=== PATIENT | female | born 1940 | race Caucasian/White ===

== ENCOUNTER → 2016-11-05 | Outpatient (CLI) | payer MEDICARE, OTHER ==
[~2016-11-05] MED LIST: ELIQUIS 5MG PO; LIPITOR 10MG10 MG; NORVASC 5MG5 MG/TAB PO; SYNTHROID0.05 MG/TA PO; TOPROL XL 25MG25 MG PO
== END ==
LOC: COL.LAB 09:50
PROVIDERS: Orthopaedic Surgery
DX: Z01.812 Encounter for preprocedural laboratory examination (principal)

== ENCOUNTER 2016-12-04 10:58 | Inpatient (IN) | payer MEDICARE, OTHER ==
[~2016-12-04] VITALS: Ht 147.3 cm; Wt 91.0 kg
[2016-12-24] MEDS ORDERED: SYNTHROID0.05 MG/TA PO (11:33)
[2016-12-24] MEDS ORDERED: ELIQUIS 5MG PO (11:34)
[2016-12-24] MEDS ORDERED: TOPROL XL 25MG25 MG PO (11:35)
[2016-12-24] MEDS ORDERED: NORVASC 5MG5 MG/TAB PO (11:36)
[2016-12-24 11:37] VITALS: BP 130/86; PULSE 66; TEMP 97.6
[2016-12-24] MEDS ORDERED: LIPITOR 10MG10 MG PO (11:37)
--- NOTE | 2016-12-24 13:09 | NUR ---
PT TO SURGERY PER BED WITH MUMTAZ RN AT THIS TIME. CONSENT SIGNED ON CHART. VSS. PT VOIDED PRIOR TO GOING TO SURGERY.
[2016-12-24 17:18] VITALS: TEMP 99.3
--- NOTE | 2016-12-24 18:35 | NUR ---
PT TO ROOM 328 WITH REPORT FROM [facility], PT TURNED TO SIDE WRINKLES SMOOTHED, PEDAL PULSE PALPATED READILY ON NON OPERATIVE SIDE, OPERATIVE SIDE UNABLE TO PALPATE PULSES. DOPPLER UNSUCCESSFUL IN LOCATING PULSES, OPERATIVE TOES COOL TO TOUCH, DR. BHATT NOTIFIED AND CAME TO FLOOR. DR BHATT UNSUCCESSFUL IN LOCATING PULSES WITH DOPPLER. WAITING FOR FURTHER ORDERS. SOHAN DURÁN FOR DR. STEWART NOTIFIED.
[2016-12-24 18:41] VITALS: BP 132/83; PULSE 48
[2016-12-24 19:33] LABS: HEMATOCRIT 38.6 % (37.0-47.0); HEMOGLOBIN 12.3 g/dl (12.5-16.0); MEAN CELL VOLUME 97 fl (80.0-100.0); MEAN CORPUSCULAR HEMOGLOBIN 31 pg (27.0-31.0); MEAN CORPUSCULAR HGB CONC 32 g/dl (33.0-37.0); MEAN PLATELET VOLUME 9.1 fl (7.4-10.4); PLATELET COUNT 262 K/mm3 (130-400); RED BLOOD COUNT 3.98 M/mm3 (4.10-5.30); REDCELL DISTRIBUTION WIDTH-CV 15.1 % (11.5-14.5)
[2016-12-24 19:43] LABS: INR 1.5 (0.8-3.0); PROTHROMBIN TIME 16.6 SECONDS (9.7-12.8)
--- NOTE | 2016-12-24 19:57 | NUR ---
PT TRANSFERED BY [facility]IC[facility]TER TO [facility] WITH REPORT TO [facility] @1944. REPORT CALLED TO WALLACE GAFFNEY @ [facility] ICU @ 1954.
[2017-01-27] MEDS ORDERED: PLAVIX 75MG TAB75 MG PO (15:36)
[2017-01-27] MEDS ORDERED: COLACE 100100 MG/CAP PO (15:40)
[2017-01-27] MEDS ORDERED: ENSURE 237 ML237 ML PO (15:44)
[2017-01-27] MEDS ORDERED: FERROUS SU325 MG/TAB PO (15:45)
[2017-01-27] MEDS ORDERED: HCTZ 25MG TAB25 MG PO (15:47)
[2017-01-27] MEDS ORDERED: TIROSINT50 MC1 PO (15:49)
[2017-01-27] MEDS ORDERED: TOPROL XL 25MG25 MG PO (15:51)
[2017-01-27] MEDS ORDERED: MIRALAX PA17 GM/Dose PO (15:52)
[2017-01-27] MEDS ORDERED: BENICAR40 MG PO (15:53)
[2017-01-27] MEDS ORDERED: EFFEXOR XR75 MG/CAP PO (15:53)
[2017-01-27] MEDS ORDERED: CEFEPIME2 GM/100 M IV (15:57)
[2017-01-27] MEDS ORDERED: CIPRO 500MG TA500 MG PO (16:01)
[2017-02-26] MEDS ORDERED: CEFEPIME1 GM/50 ML IV (18:09)
[2017-02-26] MEDS ORDERED: HCTZ 25MG TAB25 MG PO (18:12)
[2017-02-26] MEDS ORDERED: NORVASC 5MG5 MG/TAB PO (18:15)
[2017-02-26] MEDS ORDERED: BENICAR40 MG PO (18:16)
[2017-02-26] MEDS ORDERED: VANCOMYCIN HYD750 MG IV (18:17)
[2017-02-26] MEDS ORDERED: CENA K40 MEQ/15 PO (18:17)
[2017-02-26] MEDS ORDERED: TYLENOL SU650 MG/SUP RC (18:20)
[2017-02-26] MEDS ORDERED: DULCOLAX S10 MG/SUPP RC (18:20)
[2017-02-26] MEDS ORDERED: IMODIUM 2MG CAPS2 MG PO (18:21)
[2017-02-26] MEDS ORDERED: ATIVAN 0.50.5 MG/TAB PO (18:22)
[2017-02-26] MEDS ORDERED: NORCO 325 MG-51 TAB PO (18:23)
[2017-02-26] MEDS ORDERED: TYLENOL 325MG325 MG PO (18:23)
[2017-03-01] MEDS ORDERED: TOPROL XL 50MG50 MG PO (13:03)
[2017-03-01] MEDS ORDERED: NORVASC 10MG10 MG PO (13:03)
[2017-03-01] MEDS ORDERED: COZAAR100 MG PO (13:03)
[2017-03-01] MEDS ORDERED: APRESOLINE 10MG10 MG PO (13:05)
== END 2016-12-24 20:02 | disposition short-term general hospital (02) | DRG 467 ==
LOC: SURG 12-24 07:30 → JCC 12-24 10:52 → SURG 12-24 13:30 → JCC 12-24 20:02
PROVIDERS: Surgery; ADMIT Orthopaedic Surgery
PROC: 0SPD0JZ Removal of Synthetic Substitute from Left Knee Joint, Open Approach (ICD-10-PCS; 2016-12-24)
PROC: 04Q Lower Arteries, Repair (ICD-10-PCS; 2016-12-24)
PROC: 0SRD0J9 Replacement of Left Knee Joint with Synthetic Substitute, Cemented, Open Approach (ICD-10-PCS; principal; 2016-12-24 13:30)
DX: T84.063A Wear of articular bearing surface of internal prosthetic left knee joint, initial encounter (principal); I97.52 Accidental puncture and laceration of a circulatory system organ or structure during other procedure; M17.12 Unilateral primary osteoarthritis, left knee; I10 Essential (primary) hypertension; G47.33 Obstructive sleep apnea (adult) (pediatric); I48.0 Paroxysmal atrial fibrillation
CPT/HCPCS: C1713; C1776; J0690; J1644; J2250; J2274; J2370; J2704; J3370; J7120

== ENCOUNTER → 2016-12-17 | Outpatient (CLI) | payer MEDICARE, OTHER | LOC: COL.LAB 14:20 | DX: Z01.812 Encounter for preprocedural laboratory examination (principal); M25.862 Other specified joint disorders, left knee ==

== ENCOUNTER → 2017-01-02 | Outpatient (REF) ==
[2017-01-02 12:27] LABS: MEAN CELL VOLUME 96 fl (80.0-100.0); MEAN CORPUSCULAR HGB CONC 32 g/dl (33.0-37.0); MEAN PLATELET VOLUME 10.2 fl (7.4-10.4); PLATELET COUNT 220 K/mm3 (130-400); RED BLOOD COUNT 2.63 M/mm3 (4.10-5.30); REDCELL DISTRIBUTION WIDTH-CV 18.3 % (11.5-14.5)
[2017-01-02 12:33] LABS: HEMATOCRIT 25.3 % (37.0-47.0); HEMOGLOBIN 8.2 g/dl (12.5-16.0); MEAN CORPUSCULAR HEMOGLOBIN 31 pg (27.0-31.0); WHITE BLOOD COUNT 21.4 K/mm3 (4.8-10.8)
[2017-01-02 12:42] LABS: CALCIUM 8.7 mg/dL (8.4-10.2); CREATININE, serum 0.94 mg/dL (0.52-1.25); POTASSIUM 3.6 mmol/L (3.4-5.0)
[2017-01-02 13:04] LABS: ADD PATHOLOGY DIFF REVIEW YES; ANISOCYTOSIS 1+; BAND 8 % (0-10); METAMYELOCYTE 5 % (0-0); MYELOCYTE 2 % (0-0); NEUTROPHILS 76 % (42.0-75.2); POLYCHROMASIA 1+; TOTAL CELLS COUNTED 100
[2017-01-05 08:46] LABS: PATHOLOGY DIFF REVIEW OK
== END ==
LOC: ZCOL.LAB 12:23
PROVIDERS: Internal Medicine
DX: Z01.89 Encounter for other specified special examinations (principal)

== ENCOUNTER → 2017-02-04 | Outpatient (REF) ==
[~2017-02-04] MED LIST changes: +BENICAR40 MG PO; +CEFEPIME2 GM/100 M IV; +CIPRO 500MG TA500 MG PO; +COLACE 100100 MG/CAP PO; +EFFEXOR XR75 MG/CAP PO; +ENSURE 237 ML237 ML PO; +FERROUS SU325 MG/TAB PO; +HCTZ 25MG TAB25 MG PO; +MIRALAX PA17 GM/Dose PO; +PLAVIX 75MG TAB75 MG PO; +TIROSINT50 MC1 PO
[2017-02-04 09:42] LABS: BASO # 0.1 (0.0-0.2); BASO % 0.8 % (0.0-2.0); EOS # 0.3 (0.0-0.7); EOS % 4.3 % (0-4.0); GRAN # 4.9 (1.4-6.5); LYMPH % 13.6 % (20.0-51.0); MEAN CELL VOLUME 105 fl (80.0-100.0); MEAN CORPUSCULAR HGB CONC 31 g/dl (33.0-37.0); MEAN PLATELET VOLUME 9.1 fl (7.4-10.4); MONO # 0.9 (0.1-0.6); MONO % 12.9 % (1.7-9.3); PLATELET COUNT 286 K/mm3 (130-400); RED BLOOD COUNT 2.62 M/mm3 (4.10-5.30); WHITE BLOOD COUNT 7.3 K/mm3 (4.8-10.8)
[2017-02-04 09:44] LABS: HEMATOCRIT 27.5 % (37.0-47.0); HEMOGLOBIN 8.5 g/dl (12.5-16.0); MEAN CORPUSCULAR HEMOGLOBIN 32 pg (27.0-31.0)
[2017-02-04 10:03] LABS: ERYTHROCYTE SEDIMENTATION RATE 14 mm/hr (0-30)
[2017-02-04 10:54] LABS: ADJUSTED CALCIUM 9.5 mg/dL (8.4-10.2); ALBUMIN 3.4 gm/dL (3.5-5.0); BILIRUBIN,TOTAL 1.4 mg/dL (0.0-1.0); C-REACTIVE PROTEIN 1.3 mg/dL (0.0-0.9); CREATININE, serum 0.89 mg/dL (0.52-1.25); POTASSIUM 3.6 mmol/L (3.4-5.0)
[2017-02-04 10:56] LABS: VANCOMYCIN TROUGH 17.34 ug/mL (7.00-20.00)
== END ==
LOC: ZCOL.LAB 09:35
PROVIDERS: Internal Medicine
DX: Z01.89 Encounter for other specified special examinations (principal)

== ENCOUNTER → 2017-02-11 | Outpatient (REF) ==
[2017-02-11 09:25] LABS: BASO # 0.1 (0.0-0.2); BASO % 1.3 % (0.0-2.0); EOS # 0.4 (0.0-0.7); EOS % 4.4 % (0-4.0); GRAN # 5.7 (1.4-6.5); GRAN % 69.7 % (42.2-75.2); LYMPH # 1.2 (1.2-3.4); LYMPH % 14.6 % (20.0-51.0); MEAN CELL VOLUME 104 fl (80.0-100.0); MEAN CORPUSCULAR HGB CONC 31 g/dl (33.0-37.0); MEAN PLATELET VOLUME 9.4 fl (7.4-10.4); MONO # 0.8 (0.1-0.6); MONO % 9.3 % (1.7-9.3); PLATELET COUNT 338 K/mm3 (130-400); RED BLOOD COUNT 3.09 M/mm3 (4.10-5.30); WHITE BLOOD COUNT 8.2 K/mm3 (4.8-10.8)
[2017-02-11 09:29] LABS: HEMATOCRIT 32.2 % (37.0-47.0); HEMOGLOBIN 10.1 g/dl (12.5-16.0); MEAN CORPUSCULAR HEMOGLOBIN 33 pg (27.0-31.0)
[2017-02-11 09:51] LABS: ERYTHROCYTE SEDIMENTATION RATE 10 mm/hr (0-30)
[2017-02-11 10:22] LABS: ADJUSTED CALCIUM 9.5 mg/dL (8.4-10.2); ALBUMIN 3.8 gm/dL (3.5-5.0); BILIRUBIN,TOTAL 1.1 mg/dL (0.0-1.0); C-REACTIVE PROTEIN 2.5 mg/dL (0.0-0.9); CALCIUM 9.3 mg/dL (8.4-10.2); CREATININE, serum 1.08 mg/dL (0.52-1.25); POTASSIUM 3.6 mmol/L (3.4-5.0); TOTAL PROTEIN 6.7 gm/dL (6.4-8.2)
[2017-02-11 10:51] LABS: VANCOMYCIN TROUGH 20.42 ug/mL (7.00-20.00)
== END ==
LOC: ZCOL.LAB 09:08
PROVIDERS: Internal Medicine
DX: D72.825 Bandemia (principal); E87.1 Hypo-osmolality and hyponatremia; T84.54XD Infection and inflammatory reaction due to internal left knee prosthesis, subsequent encounter

== ENCOUNTER → 2017-02-13 | Outpatient (REF) | LOC: ZCOL.LAB 10:11 | DX: Z01.89 Encounter for other specified special examinations (principal) ==

== ENCOUNTER → 2017-02-18 | Outpatient (REF) ==
[2017-02-18 10:56] LABS: BASO # 0.1 (0.0-0.2); BASO % 1.6 % (0.0-2.0); EOS # 0.4 (0.0-0.7); EOS % 5.7 % (0-4.0); GRAN # 3.7 (1.4-6.5); GRAN % 61.3 % (42.2-75.2); LYMPH # 1.1 (1.2-3.4); LYMPH % 18.4 % (20.0-51.0); MEAN CELL VOLUME 105 fl (80.0-100.0); MEAN CORPUSCULAR HGB CONC 31 g/dl (33.0-37.0); MEAN PLATELET VOLUME 9.2 fl (7.4-10.4); MONO # 0.8 (0.1-0.6); MONO % 12.8 % (1.7-9.3); PLATELET COUNT 273 K/mm3 (130-400); RED BLOOD COUNT 3.15 M/mm3 (4.10-5.30); WHITE BLOOD COUNT 6.1 K/mm3 (4.8-10.8)
[2017-02-18 10:57] LABS: HEMOGLOBIN 10.1 g/dl (12.5-16.0); MEAN CORPUSCULAR HEMOGLOBIN 32 pg (27.0-31.0)
[2017-02-18 11:20] LABS: ERYTHROCYTE SEDIMENTATION RATE 9 mm/hr (0-30)
[2017-02-18 11:52] LABS: ADJUSTED CALCIUM 9.9 mg/dL (8.4-10.2); ALBUMIN 3.4 gm/dL (3.5-5.0); C-REACTIVE PROTEIN 2.2 mg/dL (0.0-0.9); CALCIUM 9.4 mg/dL (8.4-10.2); CREATININE, serum 1.11 mg/dL (0.52-1.25); POTASSIUM 3.5 mmol/L (3.4-5.0)
[2017-02-18 11:55] LABS: VANCOMYCIN TROUGH 17.14 ug/mL (7.00-20.00)
== END ==
LOC: ZCOL.LAB 10:46
PROVIDERS: Internal Medicine
DX: T81.4XXD Infection following a procedure, subsequent encounter (principal); E87.1 Hypo-osmolality and hyponatremia; T84.54XD Infection and inflammatory reaction due to internal left knee prosthesis, subsequent encounter

== ENCOUNTER → 2017-02-25 | Outpatient (CLI) | payer MEDICARE, OTHER ==
[~2017-02-25] MED LIST changes: +APRESOLINE 10MG10 MG PO; +ATIVAN 0.50.5 MG/TAB PO; +CEFEPIME1 GM/50 ML IV; +CENA K40 MEQ/15 PO; +COZAAR100 MG PO; +DULCOLAX S10 MG/SUPP RC; +IMODIUM 2MG CAPS2 MG PO; -LIPITOR 10MG10 MG; +LIPITOR 10MG10 MG PO; +NORCO 325 MG-51 TAB PO; +NORVASC 10MG10 MG PO; +TOPROL XL 50MG50 MG PO; +TYLENOL 325MG325 MG PO; +TYLENOL SU650 MG/SUP RC; +VANCOMYCIN HYD750 MG IV
== END ==
LOC: COL.RAD 12:21
DX: Z01.89 Encounter for other specified special examinations (principal)

== ENCOUNTER → 2017-03-30 | Outpatient (CLI) | payer MEDICARE, OTHER | LOC: COL.VAS 11:55 | DX: I73.9 Peripheral vascular disease, unspecified (principal); Z95.828 Presence of other vascular implants and grafts ==

== ENCOUNTER → 2017-06-17 | Outpatient (CLI) | payer MEDICARE, OTHER | LOC: COL.CARD 13:30 | DX: I48.0 Paroxysmal atrial fibrillation (principal) ==

== ENCOUNTER → 2017-12-16 | Outpatient (CLI) | payer MEDICARE, OTHER | LOC: COL.RAD 08:36 | DX: M25.562 Pain in left knee (principal); Z96.652 Presence of left artificial knee joint; Z96.642 Presence of left artificial hip joint | CPT/HCPCS: A9503 ==

== ENCOUNTER 2019-01-20 10:15 | Outpatient (RCR) | payer MEDICARE, OTHER | END 2019-01-27 10:03 | disposition home or self-care (01) | LOC: WSC 10:15 | DX: M19.011 Primary osteoarthritis, right shoulder (principal) ==

== ENCOUNTER 2020-09-08 17:40 | Emergency (ER) | payer MEDICARE, OTHER ==
[~2020-09-08] VITALS: Ht 147.3 cm; Wt 90.9 kg
[~2020-09-08 17:40] MED LIST changes: +SYNTHROID0.075 MG/T PO; -TIROSINT50 MC1 PO
[2020-09-08 18:22] LABS: BASO % 0.2 % (0.0-2.0); EOS % 0.2 % (0-4.0); GRAN # 6.9 (1.4-6.5); GRAN % 79.3 % (42.2-75.2); HEMOGLOBIN 11.7 g/dl (12.5-16.0); LYMPH # 1.1 (1.2-3.4); LYMPH % 12.9 % (20.0-51.0); MEAN CELL VOLUME 95 fl (80.0-100.0); MEAN CORPUSCULAR HEMOGLOBIN 31 pg (27.0-31.0); MEAN CORPUSCULAR HGB CONC 33 g/dl (33.0-37.0); MEAN PLATELET VOLUME 8.9 fl (7.4-10.4); MONO # 0.5 (0.1-0.6); PLATELET COUNT 216 K/mm3 (130-400); RED BLOOD COUNT 3.78 M/mm3 (4.10-5.30); REDCELL DISTRIBUTION WIDTH-CV 14.8 % (11.5-14.5)
[2020-09-08 18:26] LABS: HEMATOCRIT 35.9 % (37.0-47.0)
[2020-09-08 18:44] LABS: INR 1.4 (0.8-3.0); PROTHROMBIN TIME 15.7 SECONDS (9.7-12.8)
[2020-09-08 19:07] LABS: ALBUMIN 4.2 gm/dL (3.5-5.0); BILIRUBIN,TOTAL 0.7 mg/dL (0.0-1.0); CALCIUM 9.1 mg/dL (8.4-10.2); CREATININE, serum 1.07 (0.52-1.25); POTASSIUM 3.8 mmol/L (3.4-5.0); TOTAL PROTEIN 7.1 gm/dL (6.4-8.2)
[2020-09-08 21:38] VITALS: BP 123/70; PULSE 58; TEMP 97.7
== END 2020-09-08 21:38 | disposition home or self-care (01) ==
LOC: COL.ER 17:40
PROVIDERS: Physician Assistant
DX: S80.12XA Contusion of left lower leg, initial encounter (principal); I10 Essential (primary) hypertension; E78.5 Hyperlipidemia, unspecified; E03.9 Hypothyroidism, unspecified; I48.91 Unspecified atrial fibrillation; Z79.01 Long term (current) use of anticoagulants; Z88.6 Allergy status to analgesic agent; Z91.040 Latex allergy status; Z79.899 Other long term (current) drug therapy; Z79.02 Long term (current) use of antithrombotics/antiplatelets; Z79.890 Hormone replacement therapy; W20.8XXA Other cause of strike by thrown, projected or falling object, initial encounter
CPT/HCPCS: J3010

== ENCOUNTER 2020-09-12 11:00 | Day surgery (SDC) | payer MEDICARE, OTHER ==
[2020-09-12] VITALS (7 sets, daily range): BP systolic 96–126; BP diastolic 45–98; PULSE 58–68; TEMP 97–98.3
[~2020-09-12] VITALS: Ht 147.3 cm; Wt 90.9 kg
[2020-09-12] MEDS ORDERED: BENICAR HCT 251 TAB PO (12:44)
[2020-09-12] MEDS ORDERED: PREDNISONE 5MG5 MG PO (12:44)
[2020-09-12] MEDS ORDERED: PAMELOR 10MG10 MG PO (12:46)
[2020-09-12] MEDS ORDERED: ONE-A-DAY ESSE1 EACH PO (12:47)
[2020-09-12] MEDS ORDERED: VITAMIN C500 MG PO (12:47)
[2020-09-12] MEDS ORDERED: PHARMASSURE ZIN50 MG PO (12:48)
[2020-09-12] MEDS ORDERED: B-121000 MCG PO (12:48)
[2020-09-12] MEDS ORDERED: VITAMIN D31000 IU PO (12:48)
[2020-09-12] MEDS ORDERED: NORCO 325 MG-7.1 TAB PO ×2 (12:49→15:06)
[2020-09-12] MEDS ORDERED: CBD (12:49)
--- NOTE | 2020-09-12 15:15 | NUR ---
Pt to [facility] [place] bay 3 via cart from PACU. Pt awake and alert. Denies pain or nausea. Kurlex dressing to left lower leg is clean, dry, and intact. Daughter at bedside. Muffin and juice given per pt request. Will continue to monitor. +1 pedal pulses bilateraly. Call light within reach. Side rails up x2.
--- NOTE | 2020-09-12 15:30 | NUR ---
Pt tolerating food and fluids without difficulties. Pt has 1/2 dollar size bloody shadowing to medial side of dressing noted. Border drawn. Will continue to monitor. Pt denies pain. Call light within reach.
--- NOTE | 2020-09-12 15:45 | NUR ---
Pt continues to rest. Small amount of growth in shadowing. Will continue to monitor. Call light within reach.
--- NOTE | 2020-09-12 16:00 | NUR ---
Pt continues to rest. Shadowing to medial side of dressing has grown into small lemon size. Will notify physician.
--- NOTE | 2020-09-12 16:15 | NUR ---
notified of the dressing and bleeding. Instructed to reinforce dressing at this time, and it is still ok to send pt home.
--- NOTE | 2020-09-12 16:30 | NUR ---
Dressing reinforced with abd pad and kurlex. Pt tolerated procedure without pain. Pt has been incontenet of urine. Pt does not want to get up to [facility] or restroom. Pt states "I have a system set up at home and I will just go home and change there."
--- NOTE | 2020-09-12 16:45 | NUR ---
Discharge instructions reviewed. Pt and daughter voice understanding. ABD pads, kurlex and paper tape given to use if needing to reinforce dressing again at home. IV site discontinued with all parts intact. Will assist pt with dressing.
--- NOTE | 2020-09-12 17:00 | NUR ---
Pt escorted to private car via wheel chair. Pt accompanied home by her and daughter.
== END 2020-09-12 17:00 | disposition home or self-care (01) ==
LOC: SDCO 11:00
DX: S80.12XA Contusion of left lower leg, initial encounter (principal); S80.822A Blister (nonthermal), left lower leg, initial encounter; K21.9 Gastro-esophageal reflux disease without esophagitis; I12.9 Hypertensive chronic kidney disease with stage 1 through stage 4 chronic kidney disease, or unspecified chronic kidney disease; N18.30 Chronic kidney disease, stage 3 unspecified; G47.33 Obstructive sleep apnea (adult) (pediatric); E07.9 Disorder of thyroid, unspecified; F32.9 Major depressive disorder, single episode, unspecified; Z79.01 Long term (current) use of anticoagulants; Z79.899 Other long term (current) drug therapy; Z91.040 Latex allergy status; W20.8XXA Other cause of strike by thrown, projected or falling object, initial encounter
CPT/HCPCS: J2405; J2704; J3010; J7120

== ENCOUNTER → 2020-09-13 | Outpatient (CLI) | payer MEDICARE, OTHER ==
[~2020-09-13] MED LIST changes: +B-121000 MCG PO; +BENICAR HCT 251 TAB PO; +CBD; +NORCO 325 MG-7.1 TAB PO; +ONE-A-DAY ESSE1 EACH PO; +PAMELOR 10MG10 MG PO; +PHARMASSURE ZIN50 MG PO; +PREDNISONE 5MG5 MG PO; +VITAMIN C500 MG PO; +VITAMIN D31000 IU PO
== END ==
LOC: ZCOL.LAB 20:36
DX: S81.802A Unspecified open wound, left lower leg, initial encounter (principal)

== ENCOUNTER 2022-08-07 11:22 | Emergency (ER) | payer MEDICARE, OTHER ==
[~2022-08-07] VITALS: Ht 147.3 cm; Wt 91.4 kg
[2022-08-07 12:10] LABS: MEAN CELL VOLUME 98 fl (80.0-100.0); MEAN CORPUSCULAR HGB CONC 32 g/dl (33.0-37.0); MEAN PLATELET VOLUME 10.4 fl (7.4-10.4); PLATELET COUNT 128 K/mm3 (130-400); RED BLOOD COUNT 3.01 M/mm3 (4.10-5.30); REDCELL DISTRIBUTION WIDTH-CV 21.1 % (11.5-14.5)
[2022-08-07 12:15] LABS: HEMATOCRIT 29.5 % (37.0-47.0); HEMOGLOBIN 9.5 g/dl (12.5-16.0); MEAN CORPUSCULAR HEMOGLOBIN 32 pg (27-31)
[2022-08-07 12:19] LABS: ALBUMIN 4.6 gm/dL (3.4-4.8); BILIRUBIN,TOTAL 1.1 mg/dL (0.2-1.2); CALCIUM 10.6 mg/dL (8.4-10.2); CREATININE, serum 2.1 mg/dL (0.57-1.11); TOTAL PROTEIN 7.6 gm/dL (6.2-8.1)
[2022-08-07 12:33] LABS: TROPONIN-I 0.038 ng/mL (0.00-0.033)
[2022-08-07 13:46] LABS: LYMPHOCYTE 6 % (20.0-51.0); NUCLEATED RED BLOOD CELL 3 (0-6); PLATELET ESTIMATE DECREASED (NORMAL)
[2022-08-07 13:47] LABS: ANISOCYTOSIS 2+; HYPOCHROMIA 1+
[2022-08-07 13:48] LABS: SCHISTOCYTES 1+
[2022-08-07 13:49] LABS: BURR CELLS 2+
[2022-08-07 13:50] LABS: OVALOCYTES 1+; POIKILOCYTOSIS 1+
[2022-08-07] MEDS ORDERED: DENTIVA1 LOZ (14:34)
[2022-08-07 15:07] LABS: PATHOLOGY DIFF REVIEW OK +
[2022-08-07 16:32] LABS: INR 1.5 (0.8-3.0); PROTHROMBIN TIME 17.3 SECONDS (9.7-12.8)
[2022-08-07 21:12] VITALS: BP 165/83; PULSE 63; TEMP 98.1
== END 2022-08-07 21:29 | disposition short-term general hospital (02) ==
LOC: COL.ER 11:22
PROVIDERS: Emergency Medicine
DX: C95.90 Leukemia, unspecified not having achieved remission (principal); N17.9 Acute kidney failure, unspecified; R79.1 Abnormal coagulation profile; I48.91 Unspecified atrial fibrillation; R77.8 Other specified abnormalities of plasma proteins; D64.9 Anemia, unspecified; Z91.040 Latex allergy status; Z79.01 Long term (current) use of anticoagulants; Z20.822 Contact with and (suspected) exposure to COVID-19